=== PATIENT | female | born 1985 | race Caucasian/White ===

== ENCOUNTER 2018-09-17 14:41 | Emergency (ER) | payer MEDICARE ==
[~2018-09-17] VITALS: Ht 172.7 cm; Wt 108.2 kg
[2018-09-17 14:55] VITALS: Ht 172.7 cm; Wt 108.2 kg
[2018-09-17] MEDS ORDERED: CLOMIPRAMINE HC25 MG PO (14:56)
[2018-09-17] MEDS ORDERED: FERROUS SULFAT325 MG PO (14:57)
[2018-09-17] MEDS ORDERED: LOXAPINE50 MG PO (14:57)
[2018-09-17] MEDS ORDERED: TRAZODONE HCL150 MG PO (14:57)
[2018-09-17] MEDS ORDERED: DEPO PROVERA (14:58)
[2018-09-17] MEDS ORDERED: ABILIFY MAINTE400 MG IM (15:04)
[2018-09-17] MEDS ORDERED: NALTREXONE HCL50 MG PO (15:04)
[2018-09-17] MEDS ORDERED: KLONOPIN1 MG PO (15:04)
[2018-09-17] MEDS ORDERED: ZOVIRAX400 MG PO (15:04)
[2018-09-17] MEDS ORDERED: ELIQUIS5 MG PO (15:11)
[2018-09-17] MEDS ORDERED: BYSTOLIC2.5 MG PO (15:11)
[2018-09-17] MEDS ORDERED: LYRICA100 MG PO (15:12)
[2018-09-17] MEDS ORDERED: OMEPRAZOLE40 MG PO (15:13)
--- NOTE | 2018-09-17 17:46 | NUR ---
DR. HERNANDEZ NOTIFIED. PATIENTS BEHAVIOR AND ASSESSMENT RESULTS REVIEWED. PT IS LOW RISK PER DR. HERNANDEZ ORDER. DR. HERNANDEZ STATED TO GIVE RESOURCES TO PT AT TIME OF DISCHARGE. NO FURTHER ORDERS AT THIS TIME. RESOURCES REVIEWED WITH PT AND SHE VERBALIZED UNDERSTANDING.
[2018-09-17 17:59] LABS: BASOPHILS 0.4 % (0-2); EOSINOPHILS 10.7 % (0-7); IMMATURE GRANULOCYTES 0.4 % (0-5); LYMPHOCYTES 28.1 % (15-50); MCH 27.4 pg (26.0-34.0); MCHC 31.3 g/dL (31.0-37.0); MCV 87.7 fL (80.0-100.0); MEAN PLATELET VOLUME 8.7 fL (7.4-10.4); MONOCYTES 6.7 % (2-11); NEUTROPHILS 53.7 % (40-80); PLATELET COUNT 379 10x3/uL (130-400); RBC 3.65 10x6/uL (4.00-5.40); RDW 20.7 % (11.5-14.5); WBC 7.3 10x3/uL (4.8-10.8)
[2018-09-17 18:04] LABS: APPEARANCE CLEAR (CLEAR); BILIRUBIN NEGATIVE (NEGATIVE); COLOR YELLOW (YELLOW); GLUCOSE NEGATIVE (NEGATIVE); KETONE NEGATIVE (NEGATIVE); NITRITE NEGATIVE (NEGATIVE); PROTEIN TRACE mg/dL (NEGATIVE); UROBILINOGEN NORMAL (NORMAL)
[2018-09-17 18:06] LABS: BACTERIA FEW /hpf (NONE SEEN); RED CELLS - URINE 0-5 /hpf (0-5); WHITE CELLS - URINE 0-5 /hpf (0-5)
[2018-09-17 18:11] LABS: UDS - AMPHET NEGATIVE QUAL (NEGATIVE); UDS - BARB NEGATIVE QUAL (NEGATIVE); UDS - BENZO NEGATIVE QUAL (NEGATIVE); UDS - COCAINE NEGATIVE QUAL (NEGATIVE); UDS - OPIATE NEGATIVE QUAL (NEGATIVE); UDS - PCP NEGATIVE QUAL (NEGATIVE); UDS - THC NEGATIVE QUAL (NEGATIVE)
[2018-09-17 18:14] LABS: ALBUMIN 3.5 g/dL (3.4-5.0); ALKALINE PHOSPHATASE 81 U/L (46-116); ALT (SGPT) 20 U/L (10-68); BILIRUBIN - TOTAL 0.17 mg/dL (0.2-1.3); CALC OSMOLALITY 272 mosm/kg (275-300); CALCIUM 8.7 mg/dL (8.5-10.1); CARBON DIOXIDE 27.8 mmol/L (21.0-32.0); CHLORIDE - SERUM 103 mmol/L (98-107); CREATININE - SERUM 0.9 mg/dL (0.6-1.3); GLUCOSE 91 mg/dL (74-106); HCG URINE NEGATIVE (NEGATIVE); POTASSIUM - SERUM 4.4 mmol/L (3.5-5.1); PROTEIN - SERUM 8.1 g/dL (6.4-8.2); SODIUM 137 mmol/L (136-145); UREA NITROGEN 10 mg/dL (7-18); eGFR NON AFRICAN AMERICAN 75 mL/min (90-120)
[2018-09-17 19:34] VITALS: BP 132/85
== END 2018-09-17 19:36 | disposition home or self-care (01) ==
LOC: D.ER 14:41
PROVIDERS: Emergency Medicine
DX: F20.0 Paranoid schizophrenia (principal); F91.9 Conduct disorder, unspecified

== ENCOUNTER 2018-11-06 10:10 | Day surgery (SDC) | payer MEDICARE, OTHER ==
[2018-11-05 12:21] LABS: BASOPHILS 0.3 % (0-2); EOSINOPHILS 3.5 % (0-7); HEMATOCRIT 36.8 % (36.0-48.0); HEMOGLOBIN 12.2 g/dL (12-16); IMMATURE GRANULOCYTES 0.3 % (0-5); MCH 28.8 pg (26.0-34.0); MCHC 33.2 g/dL (31.0-37.0); MEAN PLATELET VOLUME 9.1 fL (7.4-10.4); MONOCYTES 4.7 % (2-11); NEUTROPHILS 55.2 % (40-80); RBC 4.23 10x6/uL (4.00-5.40); RDW 13.2 % (11.5-14.5)
[2018-11-05 12:29] LABS: PLATELET COUNT 220 10x3/uL (130-400)
[~2018-11-06] VITALS: Ht 172.7 cm; Wt 103.4 kg
[~2018-11-06 10:10] MED LIST: ABILIFY MAINTE400 MG IM; BYSTOLIC2.5 MG PO; CLOMIPRAMINE HC25 MG PO; DEPO PROVERA; ELIQUIS5 MG PO; FERROUS SULFAT325 MG PO; KLONOPIN1 MG PO; LOXAPINE50 MG PO; LYRICA100 MG PO; NALTREXONE HCL50 MG PO; OMEPRAZOLE40 MG PO; TRAZODONE HCL150 MG PO; ZOVIRAX400 MG PO
[2018-11-06 10:57] LABS: HCG URINE NEGATIVE (NEGATIVE)
[2018-11-06 11:01] VITALS: BP 123/76; Ht 172.7 cm; Wt 103.4 kg
--- NOTE | 2018-12-17 08:17 | OP ---
PATIENT NAME: WILLIAM HUANG MEDICAL RECORD: [id number] :81 LOCATION:[facility] ADMISSION DATE: SURGEON: RICARDO ELLISON MD DATE OF OPERATION: 11/06/2018 PREOPERATIVE DIAGNOSIS: Dysfunctional uterine bleeding. POSTOPERATIVE DIAGNOSIS: Dysfunctional uterine bleeding. PROCEDURES: 1. Hysteroscopy. 2. Dilation and curettage. 3. Uterine ablation using a NovaSure device. SURGEON: Ricardo Ellison MD ANESTHESIOLOGIST: Stephan ANESTHESIA: General. FINDINGS: Cervix is unremarkable as well as the vaginal vault. The uterus sounds to 8-9 cm. Uterine length is 6.5, width is 4.5. [id number] tissue returned at the time of curettage. Upon visualization of the uterine cavity, no masses are seen. SPECIMENS REMOVED: Uterine curetting. SPECIMEN DISPOSITION: Pathology. ESTIMATED BLOOD LOSS: Minimal. FLUIDS: 500 cc crystalloid. URINE OUTPUT: Quantity sufficient void prior to this procedure. COMPLICATIONS: None. DRAINS: None. INDICATIONS: The patient is a 33-year-old female with no future fertility desires and heavy bleeding. The patient has failed medical management, desires more aggressive treatment. The risks, benefits as well as limitations of this procedure have been discussed. DESCRIPTION OF PROCEDURE: After informed consent was assured, the patient was taken to the operating room, where anesthetic was obtained. The patient was now prepped and draped in the usual sterile fashion. With the patient in Yellofin stirrups, speculum was introduced in the vagina. Cervix was identified, grasped with a single-tooth tenaculum and serially dilated to accommodate a diagnostic hysteroscope. The hysteroscope was passed in under direct visualization with good view of the uterine fundus and anterior and posterior surfaces of the uterine cavity. Both ostia were visualized and found to be unremarkable. No masses are identified. Sharp curettage was performed after the dilation of the cervix to accommodate #2 sharp curette. Good cry was obtained throughout. The patient now has the uterus sounded to approximately 8 cm. The measuring device OPERATIVE REPORT [id number] WILLIAM HUANG provided with the NovaSure is now utilized to obtain intracavity length of 6.5 cm with a width of 4.5 cm. After the test cycle was run through, treatment now began for a total of 39 seconds. The patient has the device removed from the uterus and the single-tooth tenaculum, which was used to study the cervix, was removed. The puncture sites were inspected and hemostasis was achieved with a ring forceps. This ring forceps was removed prior to transferring the patient to the [facility]. Sponge, lap, needle counts were correct times 2. The patient tolerated this procedure well and went to the recovery area in stable condition. TRANSINT:[id number] Voice Confirmation ID: [id number] DOCUMENT ID: [id number] RICARDO ELLISON MD at 0817 CC: [id number] DICTATION DATE: 12/15/18 1756 POTATO PICKER: 12/15/18 [id number] [facility] 11/06/18 [id number] [place] [address]
== END 2018-11-06 15:20 | disposition home or self-care (01) ==
LOC: D.OPS 10:10 → D.PAN 12:00 → D.OPS 15:20 → D.PAN 11-09 10:00 → D.OPS 11-09 10:00 → D.PAN 11-09 12:00
PROVIDERS: ATTEND Obstetrics & Gynecology
DX: N93.8 Other specified abnormal uterine and vaginal bleeding (principal); Z01.812 Encounter for preprocedural laboratory examination

== ENCOUNTER 2018-11-27 13:23 | Emergency (ER) | payer MEDICARE, OTHER ==
[~2018-11-27] VITALS: Ht 172.7 cm; Wt 90.9 kg
[2018-11-27 13:26] VITALS: Ht 172.7 cm; Wt 90.9 kg
--- NOTE | 2018-11-27 14:56 | NUR ---
PATIENT VEHEMENTLY DENIES ANY WISH TO HARM SELF IN ANY WAY. STATES THAT SHE DOES FEEL DEPRESSED MUCH OF THE TIME, BUT WOULD NEVER HARM HERSELF. ADMITS TO HAVING FLEETING THOUGHTS OF WISHING TO GO TO SLEEP AND NOT AWAKEN WITHIN THE PAST MONTH. PT STATES THAT HER MOTHER WOULD BE DEEPLY HURT IF SHE KILLED HERSELF AND WOULD NOT WANT TO HURT HER MOTHER OR THE REST OF HER FAMILY. STATES SAMARITAN AND MORAL REASONS FOR NOT KILLING HERSELF. DR YOUNG NOTIFIED AND REVIEWED PT'S BEHAVIOR AND ASSESSMENT RESULTS. PT IS A LOW RISK PER DR YOUNG. DR YOUNG STATED TO GIVE RESOURCES TO PT AT TIME OF DISCHARGE. NO FURTHER ORDERS AT THIS TIME. RESOURCES REVIEWED WITH PT AND SHE VERBALIZED UNDERSTANDING.
[2018-11-27 15:00] LABS: BASOPHILS 0.2 % (0-2); EOSINOPHILS 2.1 % (0-7); HEMATOCRIT 41.5 % (36.0-48.0); HEMOGLOBIN 13.6 g/dL (12-16); IMMATURE GRANULOCYTES 0.3 % (0-5); LYMPHOCYTES 34.3 % (15-50); MCH 28.5 pg (26.0-34.0); MCHC 32.8 g/dL (31.0-37.0); MONOCYTES 5.8 % (2-11); NEUTROPHILS 57.3 % (40-80); PLATELET COUNT 196 10x3/uL (130-400); RBC 4.77 10x6/uL (4.00-5.40); RDW 13.6 % (11.5-14.5); WBC 6.1 10x3/uL (4.8-10.8)
[2018-11-27 15:17] LABS: APPEARANCE HAZY (CLEAR); BILIRUBIN NEGATIVE (NEGATIVE); COLOR DARK YELLOW (YELLOW); GLUCOSE NEGATIVE (NEGATIVE); KETONE NEGATIVE (NEGATIVE); NITRITE NEGATIVE (NEGATIVE); PROTEIN NEGATIVE (NEGATIVE); SPECIFIC GRAVITY 1.015 (1.005-1.020); UROBILINOGEN NORMAL (NORMAL)
[2018-11-27 15:18] LABS: BACTERIA MODERATE /hpf (NONE SEEN)
[2018-11-27 15:18] LABS: ALBUMIN 3.8 g/dL (3.4-5.0); ANION GAP 14.3 mmol/L (8-16); BILIRUBIN - TOTAL 0.22 mg/dL (0.2-1.3); CALCIUM 8.7 mg/dL (8.5-10.1); CARBON DIOXIDE 27.1 mmol/L (21.0-32.0); CREATININE - SERUM 1.1 mg/dL (0.6-1.3); POTASSIUM - SERUM 4.4 mmol/L (3.5-5.1)
[2018-11-27 15:20] LABS: UDS - AMPHET NEGATIVE QUAL (NEGATIVE); UDS - BARB NEGATIVE QUAL (NEGATIVE); UDS - BENZO NEGATIVE QUAL (NEGATIVE); UDS - COCAINE NEGATIVE QUAL (NEGATIVE); UDS - OPIATE NEGATIVE QUAL (NEGATIVE); UDS - PCP NEGATIVE QUAL (NEGATIVE); UDS - THC NEGATIVE QUAL (NEGATIVE)
[2018-11-28 04:20] VITALS: BP 127/80
== END 2018-11-28 05:27 ==
LOC: D.ER 13:23
PROVIDERS: Family Medicine
DX: R45.850 Homicidal ideations (principal); I10 Essential (primary) hypertension; K21.9 Gastro-esophageal reflux disease without esophagitis